=== PATIENT | male | born 1985 | race Caucasian/White ===

== ENCOUNTER 2018-04-11 12:41 | Emergency (ER) | payer OTHER, SELFPAY ==
[2018-04-11 12:42] VITALS: BP 126/74; PULSE 57; RESP 15; TEMP 36.4; O2SAT 100; BMI 27.0
--- NOTE | 2018-04-11 12:50 | CT_ITS ---
STUDY: CT BRAIN WITHOUT CONTRAST REASON FOR EXAM: Male, 33 years old. Trauma. RADIATION DOSAGE (If Supplied By Facility): CTDIvol = ( 44.99 ) mGy, DLP = ( 779.24 ) mGycm TECHNIQUE: Transaxial CT imaging of the brain was performed without administration of intravenous contrast material. Individualized dose optimization techniques were used for this CT. COMPARISON: None. FINDINGS: Normal soft tissue structures. Normal calvarium. Normal size ventricles and extra-axial spaces for the patient's age. Normal white matter tracts of the cerebral hemispheres. Normal basal ganglia and thalami. Normal brainstem. Normal cerebellum. There is no intracranial hemorrhage. There are no findings of an acute ischemic infarction. Normal visualized paranasal sinuses. CT/Brain/Head without Contrast IMPRESSION: Normal unenhanced CT scan of the brain. Electronically Signed: Braxton Leavitt MD at 13:16 EDT , Service support ,
--- NOTE | 2018-04-11 12:59 | ED.VISSUMM ---
- ER Visit Summary Date of Service: 04/11/18 Chief Complaint: Head trauma History of Present Illness: The patient is a 33 M who was sitting a chair and fell backwards striking his head against a brick wall. He states coworker told him he was unresponsive on the floor. This happened approximately 2030 minutes prior to presentation. He reports he has vomited 3 times and complains of severe headache. He complains of blurred vision. He denies neck pain. He denies paresthesia, anesthesia motors upper or lower extremity presently the time of the injury. He denies any cardiac respiratory symptoms. He is on no anticoagulant. He ate 20 minutes prior to the fall. He has no other complaints. Physical Examination: Vital signs are remarkable for slight elevation blood pressure 126/74 and heart rate of 57. There is a palpable subcutaneous hematoma left occipital region. Unable to see TMs secondary to cerumen. Nares patent. No CSF rhinorrhea. No TMJ tenderness. No evidence of dental trauma. There is no pain the patient cervical spine. Full active range of motion without pain. Heart is regular without murmur, gallop or rub. S1 and S2 are normal. Lungs are clear to auscultation with good movement of air bilaterally. Abdomen soft nontender. GCS is 15. Patient is alert and oriented ?3. Motor is 5/5. Sensation is intact. DTRs are symmetric without clonus or Babinski. Cranial nerves II through XII are intact. Finger to nose to finger was performed adequately. Gait was observed since he walked back to his room and is unremarkable. Test Results: CT of the head was reviewed by me and interpreted by radiologist as negative for any acute intracranial process. No fracture of the skull was noted. Emergency Department Course and Treatment: Since patient has severe headache with loss of conscious and vomiting ?3 CT of the head was ordered to evaluate for intracranial bleed. He was made n.p.o. He was administered 4 mg of Zofran for his nausea and vomiting. Treatment Plan: Patient was instructed to go to [facility] after discharge from the ER and he will need to follow-up with [facility] regarding work restrictions. Patient was informed that he had a concussion and vast majority of patients with concussion have resolution of symptoms in 4-6 weeks. Disposition: Discharged to home. Off work today. [facility] follow-up. Impression: Concussion with loss of consciousness initial encounter This note was generated with [employer] dictation software. It may contain incorrect words, spelling, and punctuation that were not noted in review of the chart prior to signing ED Disposition - Plan for ED Patient: Disposition: Home or Assisted Living Chief Complaint: Head Injury Instructions: ED Concussion Referrals: Syd Mauro MD [Primary Care Provider] - [facility]ICIANS] - Additional Instructions: You will need to go to [facility] from the emergency department for further evaluation.
--- NOTE | 2018-04-11 13:31 | ED.RN ---
PT REFUSED ZOFRAN AT THIS TIME. MEDICATION NOT CHARTED AGAINST AT THIS TIME, WILL CONTINUE TO MONITOR.
== END 2018-04-11 14:01 | disposition home or self-care (01) ==
PROVIDERS: Emergency Provider Emergency Medicine; Family Provider Family Medicine; PCP Family Medicine
DX: S06.0X1A Concussion with loss of consciousness of 30 minutes or less, initial encounter (principal); R40.2411 Glasgow coma scale score 13-15, in the field [EMT or ambulance]; W07.XXXA Fall from chair, initial encounter; Y93.89 Activity, other specified; Y92.89 Other specified places as the place of occurrence of the external cause; Y99.0 Civilian activity done for income or pay
CPT/HCPCS: 70450; 99283; A4216; J2405

== ENCOUNTER 2019-04-23 00:46 | Emergency (ER) | payer OTHER, SELFPAY ==
[2019-04-23] VITALS (8 sets, daily range): BP systolic 127–145; BP diastolic 90–99; PULSE 60–68; RESP 12–18; TEMP 36.9; O2SAT 98–100; BMI 25.2
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
[2019-04-23] MEDS: Ondansetron ODT 4 MG Tablet PO (03:37)
--- NOTE | 2019-04-23 04:29 | DCINST.ED_ITS ---
ED Disposition - Plan for ED Patient: Instructions: Paronychia Prescriptions: Cephalexin [Keflex] 500 mg PO Q6 #40 cap Prescription Printed Hydrocodone Bitart/Apap 5-325 [[place] 5MG-325MG] 1 tab PO Q6H PRN PRN 2 Days #8 tab PRN Reason: Pain Prescription Printed Referrals: Syd Mauro MD [Primary Care Provider] -
== END 2019-04-23 04:38 | disposition home or self-care (01) ==
PROVIDERS: Emergency Provider Emergency Medicine; Family Provider Family Medicine; PCP Family Medicine
DX: L03.011 Cellulitis of right finger (principal)
CPT/HCPCS: 10060; 99156; 99285

== ENCOUNTER 2019-07-19 22:06 | Emergency (ER) | payer OTHER, SELFPAY ==
[2019-04-23 00:48] VITALS: BMI 25.2
[2019-07-19 22:07] VITALS: BP 126/82; PULSE 84; RESP 16; TEMP 36.8; O2SAT 98; BMI 27.7
--- NOTE | 2019-07-19 23:12 | ED.VIS.GEN ---
History of Present Illness Chief Complaint: Lower Extremity Injury Narrative: Patient is a 34-year-old male who presents with right thigh pain. He was at work playing football with clients. He pulled something in his thigh and complains of pain from the groin along the inner thigh. It is worse when he goes up or down steps. He is able to ambulate but it is difficult. He did not have a direct trauma fall injury. No other injuries. He has no medical history. Past Medical History - Allergies and Home Meds Allergies/Adverse Reactions: Allergies No Known Allergies Allergy (Verified 07/19/19 22:09) Primary Care Physician: Syd Mauro MD [Primary Care Provider] - Past Medical History: None Smoking Status: Never smoker Review of Systems All systems negative except as indicated General: Denies: Fever Cardiovascular: Denies: Chest pain Respiratory: Denies: Dyspnea Gastrointestinal: Denies: Vomiting Musculoskeletal: Reports: - - Right thigh pain Physical Exam Vital Signs/Narrative: Vital Signs Temp Pulse Resp BP Pulse Ox 07/19/19 22:07 98.2 F 84 16 126/82 H 98 Inital Vital Signs reviewed: Yes General: Well nourished, Well developed Head: Normocephalic Eyes: EOMI ENT: Moist mucous membranes Neck: Supple Cardiovascular: Regular rate Respiratory: No distress Extremities: - - Patient has tenderness along the inner right thigh but is able to actively flex and extend the hip he has no tenderness the knee he is neurovascularly intact distally with brisk capillary refill normal sensation to light touch. Skin: Normal color Neurological: Alert Psychological: Normal affect Diagnostic/Tx/Re-eval - Medical Decision Making Initially a femur x-ray was ordered but the patient refused this. My clinical suspicion for fracture is very low. His presentation is most consistent with a right thigh muscular strain. He was advised to follow-up with Worker's Comp. He was advised he may benefit from physical therapy and that if symptoms are not improving MRI could be considered as an outpatient. ED Disposition - Plan for ED Patient: Disposition: Home or Assisted Living Diagnosis: Muscle strain of right thigh Instructions: MUSCLE STRAIN, Extremity Referrals: Syd Mauro MD [Primary Care Provider] -
[2019-07-19 23:42] VITALS: BP 124/78; PULSE 77; RESP 18; O2SAT 96
== END 2019-07-19 23:43 | disposition home or self-care (01) ==
PROVIDERS: Emergency Provider Emergency Medicine; Family Provider Family Medicine; PCP Family Medicine
DX: S76.911A Strain of unspecified muscles, fascia and tendons at thigh level, right thigh, initial encounter (principal); X50.0XXA Overexertion from strenuous movement or load, initial encounter; Y93.61 Activity, american tackle football; Y92.89 Other specified places as the place of occurrence of the external cause; Y99.0 Civilian activity done for income or pay
CPT/HCPCS: 99282

== ENCOUNTER → 2019-07-28 | Outpatient (CLI) | payer OTHER, SELFPAY ==
[2019-07-21 10:18] VITALS: BMI 27.6
--- NOTE | 2019-07-28 07:16 | MRI_ITS ---
MRI of the right thigh INDICATION: Injury, pain, mass TECHNIQUE: Multiplanar spin echo magnetic resonance images of the right thigh were obtained from the level the hip joint to above the knee. The knee is not included. FINDINGS: Examination the skin and subcutaneous fat is normal. Examination musculature is normal without evidence of edema or mass. Examination the femur is normal without evidence of fracture or marrow replacing lesion. A small bone island is seen of the intertrochanteric femur near the lesser trochanter. IMPRESSION: Normal MRI of the right thigh. Electronically Signed: Solomon Nieto MD at 10:03 EDT Tel , Service support , MRI/Lower Ext/No Jt/w/o
== END | disposition home or self-care (01) ==
PROVIDERS: Family Provider Family Medicine; PCP Family Medicine; Referring Provider Physician Assistant Surgical; Visit Provider Physician Assistant Surgical
DX: S76.911A Strain of unspecified muscles, fascia and tendons at thigh level, right thigh, initial encounter (principal)
CPT/HCPCS: 73718

== ENCOUNTER 2019-08-18 07:30 | Outpatient (RCR) | payer OTHER, SELFPAY ==
[2019-07-28 14:50] VITALS: BMI 27.6
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
--- NOTE | 2019-08-18 08:15 | HP.PTDCSUM ---
HP - PT D/C Summary It has been my pleasure to treat BRIAN MADERA under orders from MARIANNE Thomson, for the diagnosis of R Thigh Strain for a total of 4 visit(s). Discharge Date: Please see the following information for a summary of their discharge status. - Subjective Subjective: Pt. was late - no pain or issues/lately. Has started squatting and jogging at gym I. Hip gets stiff when cold. - Pain Right Groin Pain Intensity (Out of 10): 0 - Overall Improvement % Improvement: 100 - Objective Objective/Function: Pt. completed all exercises w/ no incidence. No issues w/ now exercises/increased load. Cont. to progress as tolerated. - Goals Goal 1:: Pt. will be I w/ HEP & progression Goal 2:: Pt. will demo 4+/5 strength in R LE Goal 3:: Pt. will demo R SLS for 30 seconds w/ no UE assist. Goal 4:: Pt. will asc/desc stairs w/ reciprocal pattern & no HR. - Plan Plan: Patient reports wanting to be discharged to I home exercise program. - D/C Information If there are questions or concerns regarding this patient's physical therapy, please feel free to call me at [phone]. Thank you for the referral of this patient. Sincerely, Belinda Bynum DPT
== END 2019-08-18 10:35 | disposition home or self-care (01) ==
LOC: PT 07:30
PROVIDERS: Family Provider Family Medicine; PCP Family Medicine; Referring Provider Physician Assistant Surgical; Visit Provider Physician Assistant Surgical
DX: S76.911D Strain of unspecified muscles, fascia and tendons at thigh level, right thigh, subsequent encounter (principal)
CPT/HCPCS: 97110; 97161

== ENCOUNTER → 2019-10-01 15:16 | Outpatient (CLI) | payer OTHER, SELFPAY ==
--- NOTE | 2019-10-01 14:00 | VAS_PTH ---
PATIENT: BRIAN MADERA LOC: [facility] U#:[id number] AGE/SX: 40/M ROOM: RE10/01/[address]: Dr. Nithin Cole MD : 1985 BED: DIS: SPEC #: [id number] RECD: 10/01/19 15:18 STATUS: AICHA JONAS #: [id number] STEPHANIE: 10/01/19 14:[address]: Nithin Cole DEPT: SURGICAL PATHOLOGY RECD BY: Mckenzie Becker ENTERED: 10/02/19 09:44 SP TYPE: VAS OTHR DR: Dr. Syd Mauro MD Tissues: A - Vas deferens, NOS B - Vas deferens, NOS Procedures: Surgery Specimen Level II HEADER OPERATION: Bilateral partial vasectomy PRE-OP DIAGNOSIS: Sterilization TISSUE SUBMITTED: A. Left vas deferens, B. Right vas deferens MICROSCOPIC DIAGNOSIS A. Left vas deferens, segmental vasectomy: Complete cross-section of vas deferens. B. Right vas deferens, segmental vasectomy: Complete cross-section of vas deferens. AM:lul 10/05/19 MICROSCOPIC DESCRIPTION Slides are reviewed. GROSS DESCRIPTION A - Received is one container designated left vas deferens. The specimen consists of a cylindrical segment of pink-murphy soft tissue measuring 1.1 cm in length and 0.2 cm in maximum diameter. The specimen is serially sectioned after fixation and totally submitted in one cassette. B - Received is one container designated right vas deferens. The specimen consists of a cylindrical segment of pink-murphy soft tissue measuring 1.5 cm in length and 0.2 cm in maximum diameter. The specimen is serially sectioned after fixation and totally submitted in one cassette. AM:lul 10/02/19 TC: 4 [facility]: 36027 x2
[2019-10-01 14:15] VITALS: BMI 26.5
== END ==
LOC: LABSPEC 15:18
PROVIDERS: Family Provider Family Medicine; PCP Family Medicine; Referring Provider Surgery; Visit Provider Surgery
DX: Z30.2 Encounter for sterilization (principal)
CPT/HCPCS: 88302

== ENCOUNTER → 2019-12-22 | Outpatient (CLI) | payer OTHER, SELFPAY ==
[2019-10-01 14:15] VITALS: BMI 26.5
[2019-12-23 10:39] LABS: Semen Analysis Post Vas ABSENT
== END | disposition home or self-care (01) ==
LOC: PAVLAB 11:00
PROVIDERS: PCP Family Medicine; Referring Provider Surgery; Visit Provider Surgery
DX: Z30.2 Encounter for sterilization (principal)
CPT/HCPCS: 89321

== ENCOUNTER 2020-04-05 20:31 | Emergency (ER) | payer OTHER, SELFPAY ==
[2019-10-01 14:15] VITALS: BMI 26.5
[2020-04-05 20:33] VITALS: BP 132/87; PULSE 84; RESP 16; TEMP 36.5; O2SAT 98; BMI 25.1
--- NOTE | 2020-04-05 20:46 | ED.VISSUMM ---
- ER Visit Summary Date of Service: 04/05/20 Chief Complaint: Left lower extremity pain History of Present Illness: The patient is a 35 M who injured his left knee and left ankle when playing basketball at work today. Physical Examination: Tenderness to his anterior left knee. Otherwise unremarkable. Good range of motion and extension. Left lateral ankle is swollen and tender to palpation. Foot is unremarkable. Neurovascular intact. Test Results: X-rays pending. Emergency Department Course and Treatment: X-rays were negative except for a left lateral malleolus sprain. Patient was given crutches. Rest ice elevate. Anti-inflammatories. Follow-up with Workmen's Compensation. He was given a work note. froi was completed. Treatment Plan: As above Disposition: Discharge Impression: Left ankle sprain, left knee sprain This note was generated with [employer] dictation software. It may contain incorrect words, spelling, and punctuation that were not noted in review of the chart prior to signing ED Disposition - Plan for ED Patient: Referrals: Syd Mauro MD [Primary Care Provider] -
--- NOTE | 2020-04-05 21:10 | RAD_ITS ---
STUDY: X-RAY - LEFT ANKLE REASON FOR EXAM: Male, 35 years old. FELT ANKLE POP WHILE PLAYING BASKETBALL, SWELLING TECHNIQUE: 3 view(s) of the ankle. COMPARISON: None. FINDINGS: Normal visualized distal tibia and fibula. Normal medial and lateral malleoli. Normal tibiotalar articulation and ankle mortise. Normal visualized talus and calcaneus. The visualized subtalar, talonavicular, calcaneocuboid and tarsal articulations are normal. Soft tissue swelling overlying the lateral malleolus.. RAD/Ankle min 3 Views IMPRESSION: Lateral malleolus sprain. No evidence for acute fracture or dislocation Electronically Signed: Syd Hitchcock MD at 21:42 EDT , Service support ,
--- NOTE | 2020-04-05 21:10 | RAD_ITS ---
STUDY: X-RAY - LEFT KNEE REASON FOR EXAM: Male, 35 years old. FELT KNEE POP WHILE PLAYING BASKETBALL TECHNIQUE: 4 view(s) of the knee. COMPARISON: None. FINDINGS: Normal visualized distal femur. Normal visualized proximal tibia and fibula. Normal proximal tibiofibular articulation. Normal medial femorotibial compartment. Normal lateral femorotibial compartment. Normal patellofemoral articulation. The soft tissue structures are unremarkable. RAD/Knee 4 or More Views IMPRESSION: Normal x-ray examination of the knee. Electronically Signed: Syd Hitchcock MD at 21:43 EDT , Service support ,
--- NOTE | 2020-04-05 21:55 | ED.DEP ---
ED Disposition - Plan for ED Patient: Instructions: ED Sprain Ankle W X Ray Referrals: [facility] [GROUP OF PHYSICIANS] -
== END 2020-04-05 22:36 | disposition home or self-care (01) ==
PROVIDERS: Emergency Provider Emergency Medicine; PCP Family Medicine
DX: S83.92XA Sprain of unspecified site of left knee, initial encounter (principal); S93.402A Sprain of unspecified ligament of left ankle, initial encounter; X58.XXXA Exposure to other specified factors, initial encounter; Y93.67 Activity, basketball; Y92.89 Other specified places as the place of occurrence of the external cause; Y99.0 Civilian activity done for income or pay
CPT/HCPCS: 73564; 73610; 99283

== ENCOUNTER → 2020-04-25 | Outpatient (CLI) | payer OTHER, SELFPAY ==
[2020-04-14 08:14] VITALS: BMI 25.1
--- NOTE | 2020-04-25 07:39 | MRI_ITS ---
STUDY: MRI LEFT ANKLE WITHOUT CONTRAST REASON FOR EXAM: Male, 35 years old. left ankle sprain, ankle swelling, ankle pain, posterior heel pain TECHNIQUE: Standardized fat and water weighted pulse sequences were obtained in all 3 orthogonal planes. COMPARISON: None. FINDINGS: Normal subcutis adipose space. Normal posterior tibialis tendon. Normal flexor digitorum longus tendon. Normal flexor hallucis longus tendon. There is a tenosynovitis of the peroneal tendons without a demonstrated tendon tear. Normal tibialis anterior tendon. Normal extensor hallucis longus tendon. Normal extensor digitorum longus tendons. Normal Achilles tendon and teno-osseous insertion. Edema of the Kager''s fat pad consistent with peritendinitis is. Normal plantar fascia. Normal plantar calcaneal tubercles. Normal intrinsic muscles of the rearfoot. Normal distal tibiofibular syndesmotic ligamentous complex. There is scarring with thickening of the anterior talofibular ligament consistent with a remote sprain. Normal subtalar ligaments and sinus tarsi. Normal deltoid ligamentous complexes. Normal plantar calcaneonavicular (spring) ligament. Normal tibiotalar articulation. There are mild contusions of the medial and lateral shoulders and the talar dome as well as the medial malleolus of the tibia. There is also microtrabecular infraction of the inferior aspect of the talar head. Normal subtalar articulations. Normal talonavicular articulation. Normal calcaneocuboid articulation. Normal navicular-cuneiform articulations. MRI/Lower Ext Joint Only (Routine) IMPRESSION: 1. Prior ankle injury with a thickened anterior talofibular ligament and calcaneofibular ligament and mild tenosynovitis the peroneal tendons. No high ankle sprain. 2. Mild contusions of the medial and lateral shoulders of the talar dome as well as the medial malleolus of the tibia. Microtrabecular infraction of the inferior aspect of the talar head. Electronically Signed: Solomon Nieto MD at 10:00 EDT Tel , Service support ,
== END | disposition home or self-care (01) ==
LOC: MRI 07:35
PROVIDERS: PCP Family Medicine; Referring Provider Physician Assistant; Visit Provider Physician Assistant
DX: S93.402A Sprain of unspecified ligament of left ankle, initial encounter (principal)
CPT/HCPCS: 73721

== ENCOUNTER 2020-07-05 15:00 | Outpatient (RCR) | payer OTHER, SELFPAY ==
[2020-04-07 08:45] VITALS: BMI 25.1
[2020-04-14 08:14] VITALS: BMI 25.1
--- NOTE | 2020-04-15 11:16 | HP.PTEVAL_ITS ---
Patient's Visit Information BRIAN MADERA is a 35 year old M referred to Physical Therapy by MARIANNE Armas with a diagnosis of Left Ankle and Knee Sprain. Date of Evaluation: 04/14/20 Physical Therapist: Belinda Bynum DPT - Visit Plan Frequency: 3x /Week Duration: 4 Weeks Plan: Left Ankle: Focus on edema control-Manual drainage- VASO, E-stim- and gentle ROM- no forced ROM- waiting MRI results - Subjective April 05-Left high ankle sprain and knee bruise. Was playing basketball with a client and ended up landing on someones foot. Sent him to ER- x-rays which were negative for both knee and ankle- sent him home- follow up with [facility]- 2 days later they gave him crutches- Was given a boot this morning- getting and MRI- possible achilles tendon tear. Put in for it today. Patient reports pain from the mid quad down to the top of the foot. Worst: 8/10 Agg: waking up in the morning- first few steps in the morning. Feels like the bone is going to snap. Eases: heat. Pain feels like sharp in the AM and achy throughout the day- and really annoying when he is trying to sleep. 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 - Objective Posture: FH, RS- can correct with verbal cues. Gait: antalgic- CAM walker on the left LE- no heel/toe pattern. Balance: will weight shift but reports pain- no high level balance tested due to CAM walker. Girth:Mets: 25 cm Malls:29 cm Figure 8: 60 cm. Observation: significant edema and bruising along left ankle/foot- mild indentation along achilles tendon. Palpation: tender to light touch throughout left ankle- no pain with palpation to left knee. ROM: DF: 3 degrees from neutral PF: 10 degrees, Inv: neutral, Ever: neutral- pain with all ROM testing- very guarded knee- 0-130 degrees no pain. Strength: Isometric: 3/5 with pain in ankle Knee:5/5 - Goals Goal 1:: Patient will be I with HEP and progression Goal Time Frame: 4-6 Weeks Goal 2:: Patient will ambulate >300 feet with a normalized gait pattern Goal Time Frame: 4-6 Weeks Goal 3:: Patient will demo full AROM of the left ankle Goal Time Frame: 4-6 Weeks Goal 4:: Patient will report 0/10 pain for 1 week Goal Time Frame: 4-6 Weeks - Rehabilitation Potential Physical Therapy Diagnosis: Patient presents with hypomobility- he has decreased ROM, strength, flex and muscular endurance s/p left ankle/knee injury- he has abnormal gait and significant pain. Rehabilitation Potential: Fair - Anticipated Interventions Patient/Client Instruction: Educate patient on: Benefits of Fitness Program Therapeutic Exercise to Include: Strength training, Endurance training, Balance training, Coordination, Agility training, Body mechanics, Postural training, Flexibilty training, Gait and locomotor training, Neuromotor development, Passive ROM, Active ROM, Dynamic Lumbar Stabilization For the Purpose of:: To improve muscle performance and motor function Manual Therapy Techniques to Include: Petrissage, Manual lymph drainage, Soft tissue mobilization For the Purpose of:: To decrease swelling/inflammation TENS: Yes Cryotherapy (ice pack, ice massage): Yes Thermo therapy (hot pack): Yes Vasopneumatic device: Yes For the Purpose of:: To decrease swelling/inflammation Thank you for the opportunity to evaluate your patient. For Medicare and Medicare HMO plans, please review the plan of care and approve it. It will need to be FAXED BACK to us at [phone] for Medicare purposes. For Medicare only, by signing this I certify the plan of care. Please let me know if there are questions or concerns regarding this plan of care. Physician Signature: Date:
--- NOTE | 2020-09-28 08:53 | HP.PT.NRP ---
BRIAN MADERA was seen in my office for initial evaluation on 04/14/20. The following Plan of Care was established for this patient: Initial Frequency: 3x /Week Initial Duration: 4 Weeks Patient/Client Instruction: Educate patient on: Benefits of Fitness Program Therapeutic Exercise to Include: Strength training, Endurance training, Balance training, Coordination, Agility training, Body mechanics, Postural training, Flexibilty training, Gait and locomotor training, Neuromotor development, Passive ROM, Active ROM, Dynamic Lumbar Stabilization For the Purpose of:: To improve muscle performance and motor function Manual Therapy Techniques to Include: Petrissage, Manual lymph drainage, Soft tissue mobilization For the Purpose of:: To decrease swelling/inflammation TENS: Yes Cryotherapy (ice pack, ice massage): Yes Thermo therapy (hot pack): Yes Vasopneumatic device: Yes For the Purpose of:: To decrease swelling/inflammation This patient was last seen in our office . Pertinent comments regarding their Physical therapy will appear below: Return to work- d/c At this point I will be discontinuing this patient from physical therapy. I would be happy to see this patient again in the future if found appropriate by the physician. Thank you! Belinda Bynum DPT
== END 2020-07-05 19:00 | disposition home or self-care (01) ==
LOC: PT 15:00
PROVIDERS: PCP Family Medicine; Referring Provider Physician Assistant; Visit Provider Physician Assistant
DX: S93.402D Sprain of unspecified ligament of left ankle, subsequent encounter (principal); S83.92XD Sprain of unspecified site of left knee, subsequent encounter
CPT/HCPCS: 97014; 97016; 97110; 97161; 97164; G0283

== ENCOUNTER → 2020-07-18 | Outpatient (CLI) | payer OTHER, SELFPAY ==
[2020-06-13 10:23] VITALS: BMI 25.1
--- NOTE | 2020-07-18 12:40 | MRI_ITS ---
STUDY: MRI LEFT ANKLE WITHOUT CONTRAST REASON FOR EXAM: Improving left ankle pain, evaluate for ankle stress fracture. TECHNIQUE: Standardized fat and water weighted pulse sequences were obtained in all 3 orthogonal planes. COMPARISON: MRI images 04/25/2020 and radiographs . FINDINGS: There is mild edema in the medial and lateral subcutis adipose space. There is a very small volume of fluid in the retromalleolar and submalleolar posterior tibialis tendon sheath (T2 axial images 7, 14, 15). The posterior tibialis tendon is morphologically normal. Normal flexor digitorum longus tendon. Normal flexor hallucis longus tendon. Normal peroneus longus and brevis tendons. Normal tibialis anterior tendon. Normal extensor hallucis longus tendon. Normal extensor digitorum longus tendons. Normal Achilles tendon and teno-osseous insertion. Normal plantar fascia. Normal plantar calcaneal tubercles. Normal intrinsic muscles of the rearfoot. Normal distal tibiofibular syndesmotic ligamentous complex. There is thickening of the anterior talofibular ligament (T2 axial image 13) consistent with scarring. There is thickening of the calcaneofibular ligament (T2 axial image 16) consistent with scarring. Normal subtalar ligaments and sinus tarsi. Normal deltoid ligamentous complexes. Normal plantar calcaneonavicular (spring) ligament. Normal tibiotalar articulation. There is interval resolution of the bone edema of the talar dome and medial malleolus since the prior study. There is interval development of mild bone edema in the lateral malleolus (T2 coronal image 15). Normal talar dome. Normal subtalar articulations. Normal talonavicular articulation. There is interval resolution of the bone edema of the talar head since the prior study. Normal calcaneocuboid articulation. Normal navicular-cuneiform articulations. MRI/Lower Ext Joint Only (Routine) IMPRESSION: Scarring of the anterior talofibular and calcaneofibular ligaments. Very mild posterior tibialis tenosynovitis. Mild bone edema of the lateral malleolus, a stress phenomenon. Interval resolution of the bone edema of the talus and medial malleolus. Electronically Signed: Raji Mitchell MD at 13:53 EDT Tel , Service support ,
== END | disposition home or self-care (01) ==
LOC: MRI 12:40
PROVIDERS: PCP Family Medicine; Referring Provider Physician Assistant; Visit Provider Physician Assistant
DX: S93.402A Sprain of unspecified ligament of left ankle, initial encounter (principal)
CPT/HCPCS: 73721

== ENCOUNTER 2025-05-10 09:06 | Emergency (ER) | payer BC, SELFPAY ==
[2025-05-10 09:06] VITALS: BP 142/92; PULSE 95; RESP 14; TEMP 36.3; O2SAT 97; BMI 30.4
--- NOTE | 2025-05-10 09:20 | US_ITS ---
PROCEDURE: TESTICULAR WITH ARTERIAL FLOW 05/10/2025 REASON FOR EXAM: SWELLING AND PAIN LEFT TECHNIQUE: TESTICULAR WITH ARTERIAL FLOW COMPARISON: None FINDINGS: The right testicle measures 4.5 x 3.4 x 2.6 cm. The left testicle measures 4.3 x 3.5 x 2.7 cm. The right epididymis measures 1.0 x 1.0 x 1.4 cm and the left epididymis measures 0.9 x 1.5 x 1.1 cm. There is a small left hydrocele. There is normal flow in the right testicle. There is increased flow and vascularity in the left testicle with a small left hydrocele. There is a visible skin thickening in the left scrotum measuring a proximally 0.4 cm. US/Testicular with Arterial Flow IMPRESSION: There is no testicular mass or torsion. There is increased flow and vascularity in the left testicle with a small left hydrocele. There is a visible skin thickening in the left scrotum measuring a proximally 0.4 cm. The differential includes orch itis, epididymitis Reading Location: [facility]
--- NOTE | 2025-05-10 09:21 | EDS_ITS ---
HPI History of Present Illness Chief Complaint: Male Pain/Injury Informant: patient Narrative Narrative: Increasing swelling pain left testicle for 5 days. No trauma. Today pain caused nausea therefore came here. No dysuria no penile discharge. He had vasectomy in 2019. No history of similar. Prior similar symptoms: No PFSH PFSH Medical History Back problem Strain of unspecified muscles, fascia and tendons at thigh level, right thigh, initial encounter Physical exam, pre-employment Home Medications ?Medication ?Instructions ?Recorded ?Last Taken ?Type cefdinir 300 mg capsule 300 mg PO Q12H #14 caps 04/27 02/19 Unknown Rx ibuprofen 600 mg tablet 600 mg PO Q6H PRN PRN pain # 20 05/10/25 Unknown Rx TABLETS Allergy/AdvReac Type Severity Reaction Status Date / Time No Known Allergies Allergy Verified 05/10/25 09:08 Family History Mother Cancer leukemia Surgical History History of vasectomy (~09/2019) Hx of fracture of rib history of finger surgery Social History Smoking Status: Never smoker alcohol intake: current alcohol intake frequency: holidays/special occasions only substance use type: does not use caffeine: Yes what type of physical activity do you participate in: walking, running and weight training frequency: 5-6 times per week seatbelt use: always ROS ROS ED Constitutional Constitutional ED: Denies fever(s) Cardiovascular Cardiovascular: Denies chest pain Respiratory/Chest Respiratory/Chest: Denies cough Gastrointestinal Gastrointestinal: Reports nausea; Denies diarrhea or vomiting Genitourinary Genitourinary ED: Reports other Details: No penile discharge. Swelling to left testicle. ; Denies dysuria Musculoskeletal Musculoskeletal: Denies none Integumentary Denies rash or wounds Neurologic Neurologic: Denies weakness EXAM Physical Exam Const Vital Signs: 05/10/25 09:06 05/10/25 11:47 05/10/25 11:49 Temperature 97.3 F L 98 F Temperature Source Temporal Pulse Rate 95 86 59 L Respiratory Rate 14 18 14 Blood Pressure 142/92 H 139/87 H 135/76 H Blood Pressure Mean 108 104 95 Pulse Ox 97 100 98 Oxygen Delivery Method Room Air Room Air Positive well nourished and well developed General Appearance ED: well developed and NAD HEENT Reports moist mucous membranes normocephalic and atraumatic Eyes General Eye ED: Yes normal appearance of both eyes Neck full ROM Chest Wall Chest: Negative for tenderness Resp normal respiratory effort and normal air movement Effort and Inspection: symmetric chest movement; Negative for respiratory distress Cardio regular rate, regular rhythm and no murmurs Peripheral Pulses: pulses 2+ throughout GI normal to inspection, nondistended, normoactive bowel sounds and non-tender Palpation: Negative for guarding or rebound tenderness present Narrative: No penile discharge no ulcerations. Swelling to the left testicle. No induration no masses, there is bogginess to the left side there is tender inferior scrotum. No epididymal tenderness. No hernia in the groin. Extremity normal to inspection General Extremety ED: Negative for edema or tenderness General Extremity: Negative for edema Neuro oriented x3 and no sensory deficits noted Sensorium / Orientation: awake and alert Skin no rashes or lesions noted and no wounds MDM MDM MDM Narrative Medical decision making narrative: Interventions / MDM: Differential diagnosis: Left scrotal swelling, hydrocele, epididymitis Diagnosis considered but do not suspect: N/A My EKG interpretation: N/A Imaging independently reviewed and interpreted by myself: Scrotal ultrasound: Epididymitis findings along with small hydrocele read by radiology. External documents reviewed: N/A Test considered but not ordered:N/A ED course: Patient enlarged of scrotum bogginess shows possibility of hydrocele or varicocele however he does have inferior scrotal tenderness. I will check urine and scrotal ultrasound, Zofran Motrin ordered. Patient taken Motrin declined Zofran. Per nursing only 1 ultrasound did not want urine testing. Ultrasound results concerns for signs of epididymitis along with small hydrocele. I discussed the results with the patient. 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 Possible burst of Strenuous activity therefore will avoid quinolones. I will cover him with Cefdinir,he states pain improved with Motrin. Discussed scrotal support. He is given follow-up with urology. all questions were answered. . Re-evaluation: stable Disposition discussed with patient/family/significant other: Patient Case discussed with consulting clinician: N/A This note was generated with [employer] dictation software. It may contain incorrect words, spelling, and punctuation that were not noted in checking the note before signing. Radiography Diagnostic Testing: Clinical Impression(s) from Imaging Studies Testicular Ultrasound 05/10/25 09:20 IMPRESSION: There is no testicular mass or torsion. There is increased flow and vascularity in the left testicle with a small left hydrocele. There is a visible skin thickening in the left scrotum measuring a proximally 0.4 cm. The differential includes orchitis, epididymitis Reading Location: [facility] Discharge Plan Triage Chief Complaint: Male Pain/Injury ED Provider: Timothy Yanez Dx/Rx/DC Orders Clinical Impression: Hydrocele, left, Epididymitis, left Instructions: ED Epididymitis, ED Hydrocele, Type Not Specified Prescriptions: New ibuprofen 600 mg tablet 600 mg PO Q6H PRN PRN (Reason: pain) Qty: 20 0RF cefdinir 300 mg capsule 300 mg PO Q12H Qty: 14 0RF Primary Care Provider: Syd Mauro Referrals: Syd Mauro MD [Primary Care Provider] - Irineo Narayan MD [Med Staff - Active Staff] - 1-2 Weeks Activity Restrictions/Additional Instructions: Ultrasound noting left hydrocele with epididymitis. Take antibiotic as prescribed. Use ibuprofen as needed. Scrotal support with briefs. Follow-up with urology. Print Language: [place] Disposition Disposition: Home, Self Care Discharge Date/Time: 05/10/25 11:50
[2025-05-10 11:47] VITALS: BP 139/87; PULSE 86; RESP 18; O2SAT 100
[2025-05-10 11:49] VITALS: BP 135/76; PULSE 59; RESP 14; TEMP 36.6; O2SAT 98
== END 2025-05-10 11:50 | disposition home or self-care (01) ==
PROVIDERS: Emergency Provider Emergency Medicine; PCP Family Medicine; Visit Provider Emergency Medicine
DX: N45.1 Epididymitis (principal); N43.3 Hydrocele, unspecified
CPT/HCPCS: 76870; 93976; 99282

== ENCOUNTER 2025-08-17 22:52 | Emergency (ER) | payer SELFPAY ==
[2025-08-17 22:53] VITALS: BP 128/93; PULSE 66; RESP 24; TEMP 36.1; O2SAT 99; BMI 30.1
[2025-08-18 00:45] VITALS: BP 131/98; PULSE 68; RESP 16; O2SAT 99
== END 2025-08-18 01:48 | disposition left against medical advice (07) ==
LOC: ED 08-18 01:52
PROVIDERS: PCP Family Medicine
DX: Z53.21 Procedure and treatment not carried out due to patient leaving prior to being seen by health care provider (principal)
CPT/HCPCS: 99282